=== PATIENT | female | born 1930 | race Caucasian/White ===

== ENCOUNTER 2018-08-06 05:24 | Day surgery (SDC) | payer OTHER ==
[~2018-08-06] VITALS: Ht 160 cm; Wt 83.9 kg
--- NOTE | ~2018-08-06 | EKG ---
[address] [address] ELECTROCARDIOGRAM REPORT Name: SHANNAN NEWMAN Room #: [facility]#: [id number] Admission: 08/06/18 Attend Phys: Gwyn Armijo MD Discharge: 08/06/18 Date of : [birth year] Report #: [id number] THIS REPORT FOR: //name// [facility] Test Date: 2018-08-06 Test Time: 08:46:13 Pat Name: SHANNAN NEWMAN Department: Room: 150 3 Gender: F Tape Transferrer: MERLIN : 1930 Requested By: Gwyn Armijo Order Number: [id number] MD: Jaylon Agudelo Measurements Intervals [place] Rate: 60 P: 34 PA: 162 QRS: -60 QRSD: 151 T: 132 QT: 458 QTc: 458 Interpretive Statements Sinus rhythm Left bundle branch block No previous ECG available for comparison Electronically Signed On 08-07-2018 8:45:45 CDT by Jaylon Agudelo [email or web address] <ELECTRONICALLY SIGNED> By: Jaylon Agudelo MD, [facility] 08/07/18 [id number] Jaylon Agudelo MD, FACC /EPI
--- NOTE | ~2018-08-06 | O ---
[facility] [place] [address] OPERATIVE REPORT Name: SHANNAN NEWMAN Room #: 150-3 [facility] M..#: [id number] Admission: 08/06/18 Attend Phys: Gwyn Armijo MD Discharge: Date of : [birth year] Report #: [id number] THIS REPORT FOR: //name// CC: Jose Armijo DATE OF SERVICE: 08/06/2018 SURGEON: Gwyn Armijo MD PLATING EQUIPMENT TENDER: None. PREOPERATIVE DIAGNOSIS: Bilateral upper lid dermatochalasia with superior visual field defect. POSTOPERATIVE DIAGNOSIS: Bilateral upper lid dermatochalasia with superior visual field defect. OPERATION PERFORMED: Bilateral upper lid functional blepharoplasty. ANESTHESIA: Local with IV sedation. COMPLICATIONS: None. INDICATIONS FOR SURGERY: This patient has acquired upper lid dermatochalasia with superior visual field loss both eyes because of excessive upper lid tissues to include skin and fat. Visual field testing demonstrates dense superior visual defects. Retesting with the upper lid elevated shows an improvement in visual field loss of over 30% and in excess of 12 degrees. The current procedures are undertaken in order to improve the patient's visual function. Informed consent was obtained to include but not limited to the loss of vision, bleeding, infection, scarring, failure to improve the problem and need for further surgery. DESCRIPTION OF OPERATION: The patient was taken to the operating room, where 2% Xylocaine with epinephrine mixed with equal parts of 0.75% Marcaine with Wydase was administered transcutaneously to each upper lid. The patient was then prepped and draped in the usual sterile fashion and a skin-marking pen was then utilized to outline an upper lid crease that was symmetrical on each side. Graefe forceps were then used to quantitate the redundant upper lid skin and it was similarly outlined. The incisions were then made with Allan scissors and a skin-muscle flap removed from each side with high-temp cautery. Hemostasis was achieved with the monopolar cautery as it was throughout the case. The [address] [address] OPERATIVE REPORT Name: PATYSHANNAN HIGUERAYN Room #: 150-3 [facility] M.R.#: [id number] Admission: 08/06/18 Attend Phys: Gwyn Armijo MD Discharge: Date of : [birth year] Report #: [id number] orbital septum was then identified and the central and medial fat pads were inspected. The redundant soft tissue was then sculpted with the monopolar cautery. The upper lid crease was then reformed with tightening of the pretarsal orbicularis muscle. The upper lid crease was then further reformed with multiple interrupted 6-0 chromic sutures. The skin was then closed with a running 6-0 plain gut suture. The wound was then cleaned and dressed with ophthalmic antibiotic ointment and a nonstick dressing. The patient was transported to the recovery area, where cold compresses were applied, having tolerated the procedure well with no anesthetic or operative complications being noted. By: [id number] Gwyn Armijo MD /nt
[~2018-08-06 05:24] MED LIST: ASPIR 8181 MG PO; BIOTIN300 MCG PO; CELECOXIB100 MG PO; FISH OIL 1,001000 M2 PO; LASIX 20 MG TAB20 MG PO; LOSARTAN POTASS50 MG PO; RESTORIL30 MG PO; VITAMINC500 PO
[2018-08-06 08:53] LABS: CALCIUM 9.6 mg/dL (8.5-10.1); CREATININE 0.7 mg/dL (0.6-1.0); POTASSIUM 3.6 mmol/L (3.5-5.1)
[2018-08-06 09:12] VITALS: BP 180/87
== END 2018-08-06 10:38 | disposition home or self-care (01) ==
LOC: OR 05:24 → TBA 05:24 → OR 10:38
PROVIDERS: Ophthalmology
DX: H02.834 Dermatochalasis of left upper eyelid (principal); H02.831 Dermatochalasis of right upper eyelid; H53.462 Homonymous bilateral field defects, left side; H53.461 Homonymous bilateral field defects, right side; I10 Essential (primary) hypertension; Z98.41 Cataract extraction status, right eye; Z98.42 Cataract extraction status, left eye; Z98.890 Other specified postprocedural states; Z98.0 Intestinal bypass and anastomosis status; Z79.899 Other long term (current) drug therapy; Z79.82 Long term (current) use of aspirin
CPT/HCPCS: 50010; 50101; 50386; 50398; 51636; 56531; 62110; 62850; 70005